=== PATIENT | female | born 1995 | race Caucasian/White ===

== ENCOUNTER → 2017-02-01 | Outpatient (CLI) | payer OTHER ==
--- NOTE | ~2017-02-01 | MR2 ---
[facility] A Service of [facility] RADIOLOGY TEXT RESULTS PATIENT: ESVIN COATES LOCATION: [facility] : 95 UNIT #: [id number] AGE: [address]: Brenad Short MD SEX: F ORDER DR: [id number] [facility] [place], [place] [address] [id number] MR#: [id number] Acc #: [id number] NAME: ESVIN COATES : 1995 SEX: F STUDY DATE/TIME: 02/01/2017 10:59 UNIT: [facility] ROOM: STUDY DESCRIPTION: MR Abdomen WWo Cont Attending Physician: Brenda Short M.D. Referring Physician: Brenda Short M.D. Ordering Physician: Brenda Short M.D. Primary Care Physician: Keyla Silverman M.D. [facility]ENTER REPORT This report is preliminary unless electronic signature is present. EXAM MR abdomen INDICATIONS Splenic mass, splenomegaly TECHNIQUE Multiplanar MRI of the abdomen with and without contrast (14 mL MultiHance IV contrast). COMPARISON MRI abdomen 08/10/2016 FINDINGS The spleen is normal in size measuring 8 cm. There is an enhancing mass in the central spleen measuring 3.4 cm, unchanged from the 08/10/2016 exam. This probably represents a hemangioma. The lesion has mildly hyperintense T2 signal and mildly hypointense isointense T1 signal. The liver, gallbladder, pancreas, adrenal glands, kidneys are within normal limits. The bowel is not dilated. No enlarged retroperitoneal or mesenteric lymph nodes. IMPRESSION Hypervascular mass in the central spleen measures 3.4 cm, unchanged from 08/10/2016. This probably represents a benign hemangioma, however I would recommend follow up imaging to document further stability. Consider a 6-12-month follow up exam. Dictated by... Kiran Duncan M.D. THIS IS AN ELECTRONICALLY VERIFIED REPORT [facility] A Service of [facility] RADIOLOGY TEXT RESULTS PATIENT: ESVIN COATES LOCATION: [facility] : 95 UNIT #: [id number] AGE: [address]: Brenda Short MD SEX: F ORDER DR: Kiran Duncan M.D. at 02/02/2017 1:21 PM RPC/to TD: 02/02/2017 13:13 JOB #: [id number] MRI [facility]ENTER REPORT Page 1 of 1 COPY
== END | disposition home or self-care (01) ==
LOC: CMRI 10:37
DX: D73.89 Other diseases of spleen (principal)
CPT/HCPCS: 74183; A9577